=== PATIENT | female | born 1970 | race Caucasian/White ===

== ENCOUNTER 2021-12-01 14:15 | Outpatient (CLI) | payer OTHER, SELFPAY ==
--- NOTE | 2021-12-01 14:27 | MR_ITS ---
WS: [id number] MRI RIGHT KNEE HISTORY: SPRAIN OF RT KNEE , KNEE Instability, right COMPARISON: None available. Anterior cruciate ligament: Complete tear of the ACL. The remaining ACL is abnormal with edema. Posterior cruciate ligament: Intact. Medial collateral ligament: Fluid on both sides of the MCL. No full-thickness tear is identified. Posterior lateral corner structures: Intact. Medial menisci: Increased T2 signal towards the meniscal root. Cannot confirm tear. Lateral meniscus: No definite tear identified. There is a small amount of increased signal in the pos terior third of the posterior horn. Extensor mechanism: Distal quadriceps tendon and patellar tendons are intact. Fluid and soft tissue: Large suprapatellar joint effusion. There is extensive soft tissue edema surro unding the knee. No Samuels's cyst. Osseous and articular structures: Patellofemoral compartment: Normal. Medial compartment: Very minimal narrowing of the medial compartment. There is a very small amount of marrow edema in the posterior nonweightbearing surface of the femoral condyle. There is also mild ca rtilaginous injury with interruption involving the posterior medial femoral condyle. There is extensi ve marrow edema involving the tibial plateau, greatest posteriorly. The attachment of the meniscus al karri the posterior tibial plateau may be interrupted. There is a large amount of increased fluid at th is location. Lateral compartment: Minimal narrowing of the lateral compartment. Marrow edema extending across the tibial plateau. Greatest amount of edema involves the posterior tibial plateau. MR/MR knee RT wo con* [id number] IMPRESSION: 1. Complete tear ACL. 2. Large amount of marrow edema along the entire tibial plateau, greatest post erior. There is a small amount of edema with involvement of the cartilage invol ving the posterior medial femoral condyle. 3. Meniscal attachment to the posterior medial tibial plateau may be interrupt ed as there is a large amount of marrow edema and adjacent fluid at this locati on. 4. Intrasubstance degeneration of the posterior horns of the medial and latera l meniscus. 5. Number large joint effusion and extensive soft tissue edema surrounding the knee.
== END 2021-12-01 14:16 | disposition home or self-care (01) ==
LOC: RAD 14:20
PROVIDERS: PCP Nurse Practitioner Family; Visit Provider Nurse Practitioner Family
DX: S83.511A Sprain of anterior cruciate ligament of right knee, initial encounter (principal); X58.XXXA Exposure to other specified factors, initial encounter; R60.0 Localized edema; M25.461 Effusion, right knee
CPT/HCPCS: 73721

== ENCOUNTER 2023-05-16 15:04 | Observation (INO) | payer BC, SELFPAY ==
[2023-05-16] VITALS (53 sets, daily range): BP systolic 97–175; BP diastolic 60–128; PULSE 75–92; RESP 7–32; TEMP 36.6; O2SAT 93–98; BMI 52.0
--- NOTE | 2023-05-16 15:00 | PC.NURSE ---
1500 pm pt arrived from [facility] on a heparin drip 9.8 ml/hr Heparin drip stopped per dr campo order. notified dye lab technician team.
--- NOTE | 2023-05-16 15:04 | ECG_ITS ---
[facility] Test Date: 2023-05-16 Pat Name: Salome Hernandez Department: Room: 104 Gender: Female Research Physician: : 1970 Requested By: Nathaniel Koroma Order Number: [id number] Donya MD: Tereza Tanner M.D. Measurements Intervals [place] Rate: 67 P: 21 MS: 185 QRS: 32 QRSD: 88 T: 116 QT: 387 QTc: 411 Interpretive Statements SINUS RHYTHM NONSPECIFIC ST & T-WAVE ABNORMALITY No previous ECG available for comparison Electronically Signed On 05-16-2023 21:34:53 CDT by Tereza Tanner M.D. [id number]
--- NOTE | 2023-05-16 15:19 | USCV_ITS ---
Salome Hernandez Age: 53 Gender: F : 1970 Exam Date: 05/16/2023 18:08 Ordering Phys: Nathaniel Koroma MD Technologist: LESTER [place] [facility] [place]: NSTEM, tobaccoism, obesity, No history of cardiac intervention per patient. Cardiac cath done today. BP: 175 / 111 HR: 76 Rhythm: Sinus Technical Quality: Adequate with [employer]ISON MEASUREMENTS (Male / Female) Normal Values 2D ECHO LV Diastolic Diameter PLAX 3.3 cm 4.2 - 5.9 / 3.9 - 5.3 cm LV Systolic Diameter PLAX 2.4 cm IVS Diastolic Thickness 1.2 cm 0.6 - 1.0 / 0.6 - 0.9 cm IVS Systolic Thickness 1.9 cm LVPW Diastolic Thickness 1.6 cm 0.6 - 1.0 / 0.6 - 0.9 cm LVPW Systolic Thickness 1.8 cm LVOT Diameter 2.0 cm LV Ejection Fraction 2D Teich 56.0 % LV Ejection Fraction MOD 2C 55.5 % LV Ejection Fraction 2C AL 57.4 % LA Diameter 3.8 cm LA Width 3.8 cm LA Height 5.1 cm RA Width 2.6 cm RA Height 3.4 cm Aorta at Sinotubular Diameter 3.3 cm IVC Diameter 0.9 cm M-MODE Aortic Annulus Diameter 2.5 cm LA Ao Ratio MM 1.5 MV E Point Septal Separation 0.3 cm DOPPLER AV Peak Velocity 120.0 cm/s LVOT Peak Velocity 95.0 cm/s AV Area Cont Eq vti 2.7 cm squared AV Area Cont Eq pk 2.4 cm squared MV Peak Velocity 90.0 cm/s MV Area PHT 3.1 cm squared Mitral E to A Ratio 1.0 MV E' Velocity 45.0 cm/s Mitral E to MV E' Ratio 7.7 Mitral E to LV E' Lateral Ratio 6.6 Mitral E to LV E' Septal Ratio 9.3 TV Peak E Velocity 59.0 cm/s PV Peak Velocity 84.0 cm/s RV Acceleration Time 0.1 s RV Ejection Time 0.4 s RV AcT/ET 0.3 FINDINGS Left Ventricle Left ventricle is normal in size. LV systolic function is normal with EF of 55-60%. Moderate hypokinesis of inferolateral and iferior garcia. Right Ventricle The right ventricle is normal in size and function. Right Atrium Not well visualized Left Atrium The left atrium is normal in size. Mitral Valve Structurally normal mitral valve. Mild mitral regurgitation. Aortic Valve Grossly normal. No significant stenosis or regurgitation. Tricuspid Valve Trace tricuspid regurgitation. Insufficient TR jet to calculate RVSP Pulmonic Valve Not well visualized Pericardium Normal pericardium without effusion. Aorta Normal ascending aorta dimension. IVC The inferior vena cava appears normal. CONCLUSIONS Technically limited quality echocardiogram. LV systolic function is normal with EF of 55-60%. Above mentioned regional wall motion abnormalities. Mild mitral regurgitation Trace tricuspid regurgitation No comparison studies are available. Margarito Waters MD (Electronically Signed) Final Date: 17 May 2023 08:50 S
--- NOTE | 2023-05-16 15:40 | PM.HP ---
Providers/Chief Complaint Admitting Physician: Nathaniel Koroma MD Chief Complaint: nstemi History of Present Illness Salome Hernandez is a 53 year old female with a past medical history of obesity, current smoker, she has been told that she is insulin resistant, is not on any medications, at home, she is hypertensive here but does not take any blood pressure medications, who presents to [facility] due to a few day history of chest pain. Patient tells me that she has chest pain, left-sided, pain that radiates up to her left jaw, down the left arm, associate with diaphoresis, shortness of breath, and aching-like pain. She tells me that usually the chest pain initially starts as a fluttering in her chest, and then progresses to severe left-sided chest pain, no fevers, no chills, no cough, no abdominal pain, no headache or blurry vision, no dysuria, no recent surgeries, no calf pain no calf swelling, no hemoptysis, she does have shortness of breath with the chest pain. She tells me that she had a couple significant episodes throughout the weekend, and this morning, she had chest pain, then at work she had another episode of chest pain, which prompted her to come to the emergency room when she was at work Review of Systems Const: Denies: fever(s) Card: Reports: chest pain and palpitations Resp: Denies: dyspnea GI: Denies: abdominal pain : Denies: flank pain Musc: Denies: neck pain or back pain Skin/Breast: Denies: rash Neuro: Denies: headache(s), numbness in extremities or weakness in extremities Psych: Denies: anxiety Endo: Denies: polyuria or polydipsia Medications/Allergies Allergies Allergy/AdvReac Type Severity Reaction Status Date / Time morphine AdvReac Severe ADR-Dizzine Verified 05/16/23 15:40 ss PFSH Acute PFSH: Medical History (Updated 05/16/23 @ 15:48 by Nathaniel Koroma MD) Current smoker History of obesity Surgical History (Updated 05/16/23 @ 15:45 by Nathaniel Koroma MD) S/P urethral diverticulectomy Family History (Updated 05/16/23 @ 15:46 by Nathaniel Koroma MD) Mother COPD (chronic obstructive pulmonary disease) CHF (congestive heart failure) Social History (Updated 05/16/23 @ 15:45 by Nathaniel Koroma MD) Smoking and tobacco status: current every day smoker Alcohol intake: never Substance/Drug Use: never Physical Exam Const: COMMON NORMALS: no acute distress and patient oriented x3 HENMT: COMMON NORMALS: normocephalic HEAD & SCALP: normocephalic Neck/C-Spine: COMMON NORMALS: no JVD Resp: COMMON NORMALS: normal respiratory effort, No retractions, No use of accessory muscles and clear to auscultation bilaterally AUSCULTATION: clear to auscultation bilaterally Cardio: COMMON NORMALS: no JVD, regular rate, regular rhythm, S1 normal heart sound present and S2 normal heart sound present RATE: regular rate RHYTHM: regular rhythm HEART SOUNDS: S1 normal heart sound present and S2 normal heart sound present GI: COMMON NORMALS: Normal to inspection, nondistended, normoactive bowel sounds present, Soft to palpation and non-tender Extremity: COMMON NORMALS: no pedal edema Neuro: COMMON NORMALS: patient oriented x3, CN's II-XII intact bilaterally and moves all extremities Psych: COMMON NORMALS: mental status grossly normal A&P Assessment and plan (1) Non-STEMI (non-ST elevated myocardial infarction): (2) Chest pain: Plan Unstable angina/NSTEMI -Transfer to [facility], where she received Plavix load 600 mg, aspirin 324, heparin bolus of 4000, on heparin drip, currently chest pain minimal, troponin over 600, EKG reported no acute ST-T wave changes -Consult to Dr. Duenas, currently n.p.o. for coronary angiography this afternoon -Cardiac echo -Serial EKGs, serial troponins, telemetry monitoring -Aspirin, statin, Coreg -Heparin drip currently on hold -Full code -Heparin for DVT prophylaxis She does have leukocytosis, 13,000, no fever, no cough, will obtain Pro-Porter, CRP, respiratory viral panel, UA Attestations Medical Necessity Statement*: Patient requires hospitalization, outpatient observation, for NSTEMI, chest pain Diagnoses Non-STEMI (non-ST elevated myocardial infarction) I21.4 Chest pain R07.9
--- NOTE | 2023-05-16 15:52 | XACV_ITS ---
Exam Room: [facility] Ht: 170 cm Wt: 151 kg BSA: 2.76 m2 Gender: Female : 1970 Exam Priority: Routine Procedure(s): Procedure Description: Diagnostic procedure Procedure Description: PCI procedure Procedure Description: Coronary IVUS Procedure Description: Drug Eluting Coronary Stent Procedure Description: PTCA Procedure Description: Miscellaneous Procedure Description: ACT Procedure Description: Coronary Angiography Procedure Description: Pressure Wire Diagnostic Cath Status: Urgent Diagnostic Findings * INDICATION: 53 year old female with past medical history of tobacco abuse, insulin resistant not on any medications presented to outside hospital with 2 to 3 days of on and off chest discomfort and was transferred to our facility for further management. Currently patient she started noticing chest discomfort on the left side of the chest on Tuesday. It was radiating to the left arm and jaw. These episodes were associated with diaphoresis. Today got concerned as continued having on and off chest pain. Troponin obtained at outside hospital was over 600. EKG shows normal sinus rhythm with nonspecific ST-T wave changes with borderline ST elevation in lead III. * Circumflex has mild diffuse disease. * Left Main: minimal 30% stenosis, CAMMY: 3 flow. * Proximal Left Anterior Descending: obstructive 70% stenosis, CAMMY: 3 flow. * Distal Right Coronary Artery: total occlusion, CAMMY: 0 flow. * Coronary angiography shows right dominance. PCI Status: Urgent PCI Indication: NSTE - ACS Interventional Findings * PROCEDURE DETAIL: We engaged RCA with JR4 guide catheter. IV heparin was administered to maintain anticoagulation. 0.014 through guidewire was used to cross the totally occluded segment. Balloon angioplasty was performed with 2.0 x 12 mm semicompliant balloon. This restored flow however it was a very small sized diffusely diseased vessel. This vessel also had collateral blood flow from the left side. Given size of the vessel and subacute occlusion with collaterals from left size, decision was made to treat treated medically. We then turned attention to proximal LAD stenosis which appeared moderate to severe. Left main artery was engaged with XB 3.5 guide catheter. After normalization, IFR wire was advanced into distal LAD. iFR value of 0.83 was obtained that was significantly ischemic. We then performed IVUS of left main which showed minimal luminal area of 12 mm2 which was not significant. We then proceeded with PCI of proximal LAD. We predilated the stenosis with 3.0 x 15 mm semicompliant balloon. This was followed by placement of a 3.5 x 26 mm resolute Callands drug-eluting stent.We then performed IVUS that showed underexpanded segment of the stent. The stent was postdilated with 3.75 x 15 mm NC balloon. At this time final angiogram was performed that showed excellent stent expansion, no residual stenosis and CAMMY-3 flow. Guidewire and guide catheter were removed.. * Proximal Left Anterior Descendin% stenosis treated with a AB TREK 3.00X15 RX BALLOON, TONY R RUFINO 3.5X26 JAMES, and MDT NC EUPHORA RX [id number] BALLOON. 0% residual stenosis, CAMMY: 3 flow. * Distal Right Coronary Artery: 100% stenosis treated with a AB MINI TREK 2.00X12 RX BALLOON. 0% residual stenosis, CAMMY: 2 flow. Conclusions 1. Total occlusion of 2. distal RCA. Flow was restored with balloon angioplasty however diffusely diseased, small sized vessel with collaterals from left side. Stent not placed.. 3. Severe proximal LAD stenosis confirmed with IFR value of 0.83. Status post successful revascularization with 1 stent. 4. Proximal Left Anterior Descending was treated with a Balloon, Drug Eluting Stent, and Balloon. 5. Distal Right Coronary Artery was treated with a Balloon. Recommendations * Dual antiplatelet therapy with aspirin and Plavix for at least 1 year. * High intensity statin therapy. * Outpatient cardiology follow-up in 2 to 4 weeks. Interventional RX Recommendation: PCI w/o planned CABG Diagnostic RX Recommendation: PCI w/o planned CABG Anticoagulation: Heparin Pressures Phase:Rest AO : 117 / 93 ( 106 ) @ 5:29:00 PM 113 / 87 ( 101 ) @ 5:31:00 PM 121 / 96 ( 109 ) @ 5:32:00 PM 132 / 97 ( 114 ) @ 5:36:00 PM 151 / 116 ( 134 ) @ 5:43:00 PM 150 / 107 ( 127 ) @ 5:51:00 PM 161 / 95 ( 124 ) @ 5:56:00 PM 137 / 93 ( 113 ) @ 6:00:00 PM 152 / 103 ( 125 ) @ 6:07:00 PM 101 / 72 ( 86 ) @ 6:11:00 PM 194 / 99 ( 134 ) @ 6:19:00 PM 167 / 99 ( 130 ) @ 6:19:00 PM Clinical Evaluation EBL: 5mL-10mL Procedural Details Procedure Consent Obtained. Pre-Procedure Time Out. Identified patient by full name and date of as verbalized by the patient/guarantor. Does the consent match the physician's order: Yes. Accurate & Complete Informed Consent: Yes. Inpatient/Outpatient History & Physical on Chart: Yes. If H&P is completed, is and addenduem needed: No; If yes, is the addendum complete: N/A. Visualize and Verify Site with Patient/Guarantor: N/A. Relevant Radiology Images available: Yes. Pre-op teaching completed and patient verbalized understanding. The risks, benefits, and alternatives of sedation and/or procedure were discussed by physician. The patient agrees to continue. Procedure started. Physician arrived. [facility] Clinical Fraility Score: 3: Managing Well. Logistics Program Manager Indications: ACS > 24 hours. Chest Pain Symptom Assessment: Typical Angina Symptoms. Correct patient, site and procedure confirmed by cath team. Current diagnosis: NSTEMI. PERRLA. 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 Lungs clear x 5 lobes. IV Site on Arrival: 20 gauge in the right anticubital. IV Fluids: 0.9% NaCl at KVO. 0 mL infused prior to slab conditioner supervisor. Pre Procedural Pulses: bilateral dorsalis pedis was 2+. Pre Procedural Pulses: bilateral posterior tibial was 1+. Pre Procedural Pulses: bilateral radial was 2+. Oxygen started at 2liters/min via nasal canula. right groin was prepped with chloroprep then draped in the usual sterile fashion. right radial was prepped with chloroprep then draped in the usual sterile fashion. Baseline sample Acquired. HR: 67 BPM. Physician scrubbed in. Immediate Pre-Procedure Time Out. Correct Patient: Yes; Correct Procedure: Yes; Correct Site: Yes; Correct Patient Position: Yes; Correct Supplies: Yes; Dried Flammable Prep: Yes; Blood Products Available: N/A;. Lidocaine 1% infiltrated to the right radial. Arterial access obtained. Wire and needle removed. Manual pressure applied to the access site. Arterial access obtained. A 5 colombian TIG catheter in over wire. Multiple views taken of left coronary artery. Catheter redirected to the RCA. Multiple views taken of right coronary artery. Catheter removed over the exchange wire. PCI Indication: NSTEMI. ACT drawn. Results 161 seconds. Therapeutic limits - pre-heparin administration 90-150 seconds and monitoring heparin during a vascular procedure >250 seconds. 6 colombian JR 4 guide catheter was inserted over the wire. Runthrough guidewire was advanced through the guide catheter to lesion in the distal RCA. Inflation number : 1 A AB MINI TREK 2.00X12 RX BALLOON was prepped and advanced across the Dist RCA , then inflated to 10 GARY for 0:14 seconds. Inflation number: 2 The AB MINI TREK 2.00X12 RX BALLOON was reinflated across the Dist RCA, to 10 GARY for 0:11 seconds. Inflation number: 3 The AB MINI TREK 2.00X12 RX BALLOON was reinflated across the Dist RCA, to 4 GARY for 0:10 seconds. Balloon out. Results checked. Wire out. Physician review of cine films. Guide catheter out. 6 colombian XB 3.5 guide catheter was inserted over the wire. ACT drawn. Results 213 seconds. Therapeutic limits - pre-heparin administration 90-150 seconds and monitoring heparin during a vascular procedure >250 seconds. IFR guidewire was advanced through the guide catheter to lesion in the prox LAD. Results: 0.83. IVUS catheter inserted OTW and advanced to the LAD. IVUS measurements obtained. IVUS catheter out OTW. Inflation number : 1 A AB TREK 3.00X15 RX BALLOON was prepped and advanced across the Prox LAD , then inflated to 8 GARY for 0:17 seconds. Inflation number: 2 The AB TREK 3.00X15 RX BALLOON was reinflated across the Prox LAD, to 8 GARY for 0:12 seconds. Balloon out. Results checked. 3.5x26mm Resolute Callands stent inserted to lesion in the prox LAD. Intact stent out OTW. Runthrough guidewire was advanced through the guide catheter to lesion in the prox LAD. IFR wire out. Inflation Number : 3 A MDT R RUFINO 3.5X26 JAMES -Lot Number# _[id number] EXP: 10/15/2024 was prepped and advanced across the Prox LAD. The stent was deployed at 12 GARY for 0:16 seconds. Stent balloon out over wire. Results checked. IVUS catheter inserted OTW and advanced to the LAD. IVUS measurements obtained. IVUS catheter out OTW. Inflation number : 4 A MDT NC EUPHORA RX 3.84X46UM BALLOON was prepped and advanced across the Prox LAD , then inflated to 10 GARY for 0:19 seconds. Inflation number: 5 The MDT NC EUPHORA RX 3.02G40SZ BALLOON was reinflated across the Prox LAD, to 12 GARY for 0:15 seconds. Balloon out. Results checked. Wire out. Results checked. ACT drawn. Results 215 seconds. Therapeutic limits - pre-heparin administration 90-150 seconds and monitoring heparin during a vascular procedure >250 seconds. Guide catheter out. Physician scrubbed out. A TR Band was successful obtaining hemostatsis at the Right Radial artery insertion site. Post Procedure: Pulses reassessed and unchanged. PERRLA. 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 No VTE prophylaxis required. Medication's Wasted: Heparin = 1000 units. Medication's Wasted: Lidocaine 1% = 1 mL. Medication's Wasted: Nitro = 49.3 mg. Total IV fluids: 81 mL. Vital chart was stopped. Complications: None. Estimated blood loss: 5mL-10mL. Responsiveness - Normal response to verbal stimuli; alert and oriented, PERRLA. Airway - Unaffected, no intervention required; spontaneous ventilation. Circulation: W/N/L, pulses unchanged. Nausea/Vomiting: No. Procedure completed. Patient transferred by bed to 1st floor. Access Site Site: Right Radial artery Sheath Size: 6 Fr Hemostasis Method: TR Band Hemostasis Success: Successful Procedure Medications Start: 4:19 PM Stop: 4:19 PM Medication: Versed Amount: 1 mg Route: I.V. Start: 4:19 PM Stop: 4:19 PM Medication: Fentanyl Amount: 50 mcg Route: I.V. Start: 4:26 PM Stop: 4:26 PM Medication: Nitrogylcerin Amount: 300 mcg Route: I.A. Start: 4:29 PM Stop: 4:29 PM Medication: Heparin Amount: 2500 units Route: I.V. Start: 4:34 PM Stop: 4:34 PM Medication: Heparin Amount: 5000 units Route: I.V. Start: 4:45 PM Stop: 4:45 PM Medication: Nitrogylcerin Amount: 200 mcg Route: I.A. Start: 4:48 PM Stop: 4:48 PM Medication: Fentanyl Amount: 50 mcg Route: I.V. Start: 4:49 PM Stop: 4:49 PM Medication: Versed Amount: 1 mg Route: I.V. Start: 4:51 PM Stop: 4:51 PM Medication: Heparin Amount: 3000 units Route: I.V. Start: 5:05 PM Stop: 5:05 PM Medication: Heparin Amount: 1000 units Route: I.V. Start: 5:17 PM Stop: 5:17 PM Medication: Nitrogylcerin Amount: 10 mcg/min Route: I.V. drip Start: 5:18 PM Stop: 5:18 PM Medication: Nitrogylcerin Amount: 200 mcg Route: I.C. Start: 5:18 PM Stop: 5:18 PM Medication: Hydralazine Amount: 10 mg Route: I.V. Start: 5:24 PM Stop: 5:24 PM Medication: Heparin Amount: 4000 units Route: I.V. I, the attending physician, have reviewed and verified all procedure medications. Yes, all medications given per verbal order History/Risk Factors Hypertension: Yes Dyslipidemia: No Peripheral Arterial Disease (PAD): No Myocardial Infarction ([place]): No Obesity: Yes Renal Disease: No Tobacco Use: Current/Recent(w/in 1 year) Prior Interventions PCI: No CABG: No Valve Surgery: No Report Signatures Finalized by Margarito Waters MD on 05/21/2023 11:02 PM
[2023-05-16] MEDS: ondansetron 2 mg/ML SDV 2 mL 4 MG IVP (16:01)
[2023-05-16] MEDS: pantoprazole 40 mg SDV IVP (16:01)
--- NOTE | 2023-05-16 16:16 | PM.CONSULT ---
Providers/Reason For Consult Consulting Physician/Specialty*: Margarito Waters MD/ Cardiology Reason for Consult*: NSTEMI Requesting Physician: Dr Koroma Attending Physician: Nathaniel Koroma MD History of Present Illness History of Present Illness Salome Hernandez is a 53 year old female with past medical history of tobacco abuse, insulin resistant not on any medications presented to outside hospital with 2 to 3 days of on and off chest discomfort and was transferred to our facility for further management. Currently patient she started noticing chest discomfort on the left side of the chest on Tuesday. It was radiating to the left arm and jaw. These episodes were associated with diaphoresis. Today got concerned as continued having on and off chest pain. Troponin obtained at outside hospital was over 600. EKG shows normal sinus rhythm with nonspecific ST-T wave changes with borderline ST elevation in lead III. She is still having on and off chest discomfort however it is very mild now. Review of Systems Const: Denies: fever(s) Card: Reports: chest pain and palpitations Resp: Denies: dyspnea GI: Denies: abdominal pain : Denies: flank pain Musc: Denies: neck pain or back pain Skin/Breast: Denies: rash Neuro: Denies: headache(s), numbness in extremities or weakness in extremities Psych: Denies: anxiety Endo: Denies: polyuria or polydipsia Medications/Allergies Allergies Allergy/AdvReac Type Severity Reaction Status Date / Time morphine AdvReac Severe ADR-Dizzine Verified 05/16/23 15:40 ss Current Medications Generic Name Dose Route Start Last Admin Trade Name Freq PRN Reason Stop Dose Admin Ondansetron HCl 4 mg 05/16/23 15:15 05/16/23 16:01 Ondansetron 2 Mg/Ml Sdv 2 Ml IVP 4 mg Q8H PRN Administration vomiting, or N/V if npo Pantoprazole Sodium 40 mg 05/16/23 15:15 05/16/23 16:01 Pantoprazole 40 Mg Sdv IVP 40 mg Q24H ALL Administration PFSH Acute PFSH: Medical History Current smoker History of obesity Surgical History S/P urethral diverticulectomy Family History Mother COPD (chronic obstructive pulmonary disease) CHF (congestive heart failure) Social History Smoking and tobacco status: current every day smoker Alcohol intake: never Substance/Drug Use: never Vitals/I&O/Wt Last Vital Signs Pulse 80 05/16/23 15:50 Resp 25 H 05/16/23 15:50 BP 175/111 05/16/23 15:50 Pulse Ox 97 05/16/23 15:50 O2 Del Method Room Air 05/16/23 15:50 Weight last 48 hrs Weight 332 lb Physical Exam Narrative: GENERAL: Patient is alert, awake and oriented x3. [] NECK: No jugular vein distension. [] HEENT: No cyanosis. No icterus. No pallor. [] HEART: Regular S1 and S2. No murmur, rub or gallop. [] LUNGS: Clear to auscultate bilaterally. [] CENTRAL NERVOUS SYSTEM: Grossly nonfocal. [] EXTREMITIES: Lower extremities with 1+ edema bilaterally. Data 05/16/23 15:45 A&P Assessment and plan (1) Non-STEMI (non-ST elevated myocardial infarction): (2) Chest pain: Plan Patient has non-ST elevation ME. No ongoing chest discomfort. Patient troponin is significantly elevated. We will continue to trend it. Given ST changes and significant elevation of troponin, will proceed with coronary angiogram with possible PCI recently. Continue aspirin and Plavix. We will obtain echocardiogram. Thank you for involving us with care of this patient. We will continue to follow. Please call with questions. Consult Attestations Medical Necessity Statement: Care expected to cross 2 midnights. Coding Level of Care Code Acute Code for [facility] Fwd Diagnoses Non-STEMI (non-ST elevated myocardial infarction) I21.4 Chest pain R07.9
--- NOTE | 2023-05-16 16:18 | W.PM.OPSUD ---
Surgery/Procedure H&P Update DATE OF PROCEDURE: May 16, 2023 DATE H&P PERFORMED: 05/16/23 H&P UPDATE INFORMATION: I have reviewed H&P completed within last 30 days, I have examined patient prior to procedure and No changes to prior documentation PREOP DIAGNOSIS: NSTEMI PRIMARY INDICATION FOR PROCEDURE: NSTEMI PLANNED PROCEDURE: Left heart cath with possible percuteneous coronary intervention PATIENT REASSESSED PRIOR TO SEDATION, WITH NO CHANGE NOTED: Yes PHYSICAL EXAM: alert, oriented x 3, clear to auscultation bilaterally and regular rate & rhythm AIRWAY EVAL/ANESTHESIA PLAN: normal airway, ASA III, Local Anesthesia, Risks, benefits & alternatives of sedation and/or procedure discussed and Patient agrees to continue as planned ADDITIONAL INFORMATION: Moderate sedation
--- NOTE | 2023-05-16 16:19 | PC.NURSE ---
pt off unit to laboratory monitor
[2023-05-16 16:20] LABS: Platelet Count 330 10^3/cmm (157-399)
[2023-05-16 16:44] LABS: Troponin(5th) Baseline 734 ng/L (0-10)
[2023-05-16 16:47] LABS: Chol HDL Ratio 4.89 mg/dL (0.0-4.40); Cholesterol 220 mg/dL (0-200); HDL Cholesterol 45 mg/dL (60-100); LDL Cholesterol Calculated 128 mg/dL (50-129); LDL HDL Ratio 2.84 RATIO (0.00-3.22); Triglycerides 233 mg/dL (0-150)
[2023-05-16 16:48] LABS: NT Pro B Type Natriuretic Pept 724 pg/mL (0-125); Procalcitonin 0.07 ng/mL (0-0.5); Thyroid Stimulating Hormone 38.93 uIU/mL (0.27-4.20)
[2023-05-16 16:49] LABS: Estmated Average Glucose 126
[2023-05-16 16:59] LABS: C Reactive Protein 19.3 mg/L (0.0-4.9)
--- NOTE | 2023-05-16 17:15 | ECG_ITS ---
[facility] Test Date: 2023-05-16 Pat Name: Salome Hernandez Department: Room: 104 Gender: Female Urology Physician: : 1970 Requested By: Nathaniel Koroma Order Number: [id number] Donya MD: Tereza Tanner M.D. Measurements Intervals [place] Rate: 79 P: 53 [place]: 192 QRS: 42 QRSD: 90 T: 113 QT: 394 QTc: 454 Interpretive Statements SINUS RHYTHM NONSPECIFIC ST & T-WAVE ABNORMALITY Compared to ECG 05/16/2023 15:11:15 No significant changes Electronically Signed On 05-16-2023 21:34:25 CDT by Tereza Tanner M.D. [id number]
[2023-05-16] MEDS: sodium chloride 0.9% 1,000 ML 100 ML IV (18:41)
[2023-05-16] MEDS: nitroglycerin drip 50 MG/250 ML PREMIX IV (18:41)
--- NOTE | 2023-05-16 19:57 | PC.NURSE ---
Shift Note Frequent safety and comfort rounds continue. Orders and/or nursing care completed as indicated. Patient monitored for response to intervention and treatment(s). Education provided includes post cardiac catheterization activity restrictions to right arm, nitro drip and to call nurse SHERRI for any chest pain or discomfort. Patient and/or parts representative verbalizes understanding. Will continue to monitor.
--- NOTE | 2023-05-16 19:59 | PC.NURSE ---
1520 pm Direct Admit Note Patient admitted to 104 from [facility] via stretcher. Covering service notified Dr Jt Eli. Patient presents with chest pain. Orders reviewed & will continue to monitor. Patient and/or credit resolution representative oriented to environment, equipment, and informed of the following as found in the admission booklet: patient rights & responsibilities, visitor policy, hand and respiratory hygiene practice. Other education includes: NPO, cardiac catheterization. Patient and/or credit resolution representative verbalizes understanding. Notified sand molder in regards to heparin drip, Dr Waters verbal order to hold Heparin drip now and prep patient for heart cath at 4 pm. Heparin drip put on hold as ordered.
[2023-05-16] MEDS: carvedilol 3.125 mg Tablet PO (21:04)
[2023-05-16] MEDS: atorvastatin 40 mg Tablet PO (21:04)
--- NOTE | 2023-05-16 21:17 | ECG_ITS ---
[facility] Test Date: 2023-05-16 Pat Name: Salome Hernandez Department: Room: 104 Gender: Female Machine Sander: : 1970 Requested By: Nathaniel Koroma Order Number: [id number] Naqvi MD: Tereza Tanner M.D. Measurements Intervals [place] Rate: 84 P: 54 [place]: 179 QRS: 29 QRSD: 89 T: 104 QT: 374 QTc: 444 Interpretive Statements SINUS RHYTHM LOW QRS VOLTAGE IN PRECORDIAL LEADS [QRS DEFLECTION < 1.0 mV IN CHEST LEADS] NONSPECIFIC T-WAVE ABNORMALITY Compared to ECG 05/16/2023 17:40:07 Low QRS voltage now present T-wave abnormality still present Electronically Signed On 05-16-2023 21:31:29 CDT by Tereza Tanner M.D. [id number]
[2023-05-16 22:44] LABS: Troponin 5 6HR 817.2 ng/L (0-10); Troponin 5 6HR Delta 83.2 ng/L (0-12)
[2023-05-17] VITALS (60 sets, daily range): BP systolic 106–139; BP diastolic 67–88; PULSE 64–91; RESP 11–26; TEMP 36.7–37.1; O2SAT 90–97
[2023-05-17 02:50] LABS: Basophils # 0.1 10^3/uL (0.0-0.1); Basophils % 0.6 %; Eosinophils # 0.1 10^3/uL (0.0-0.8); Eosinophils % 0.7 %; Hematocrit 41.5 % (36-47); Lymphocytes % 20.6 %; Mean Corpuscular HGB Conc 31.6 g/dL (30-55); Mean Corpuscular Hemoglobin 28.2 pg (27-33); Mean Corpuscular Volume 89.4 fl (85-98); Mean Platelet Volume 9.7 fL (7.4-10.4); Monocytes # 0.7 10^3/uL (0.2-0.9); Monocytes % 7.5 %; Neutrophils # 6.96 10^3/uL (1.8-7.7); Neutrophils % 70.3 %; Nucleated Red Blood Cells % 0 %; Platelet Count 290 10^3/cmm (157-399); Red Blood Count 4.64 10^6/uL (3.85-5.65); Red Cell Distribution Width 15.8 % (12.1-15.1)
[2023-05-17 03:03] LABS: Partial Thromboplastin Time 25.1 SECONDS (23.9-36.7)
[2023-05-17 03:11] LABS: Alanine Aminotransferase 28 U/L (0-33); Alkaline Phosphatase 68 U/L (35-105); Anion Gap 11.3 (5-19); Aspartate Amino Transferase 36 U/L (0-32); Blood Urea Nitrogen 11 mg/dL (6-20); Carbon Dioxide 29 mmol/L (22-29); Chloride 102 mmol/L (98-107); Globulin 3.4 g/dL (1.3-4.6); Glomerular Filtration Rate 58.2 mL/min (90-130); Glucose 112 mg/dL (65-115); Magnesium 1.9 mg/dL (1.7-2.3); Osmolality Calculated 286 mOsm/kg (285-295); Phosphorus 3.7 mg/dL (2.5-4.5); Potassium 4.3 mmol/L (3.5-5.1); Sodium 138 mmol/L (136-145); Total Bilirubin 0.5 mg/dL (0.15-1.2); Total Protein 7.4 g/dL (6.6-8.7)
[2023-05-17] MEDS: heparin drip 25,000 UNIT/500 ML PREMIX 42.17 UNIT IV (04:00)
[2023-05-17] MEDS: sodium chloride 0.9% 1,000 ML 100 ML IV ×2 (04:02→14:17)
[2023-05-17] MEDS: perflutren protein-a microsphr 0.22 mg/mL SDV 3 mL IV (05:55)
--- NOTE | 2023-05-17 08:38 | P.PN_ITS ---
Subjective Subjective: Patient is doing well. She underwent coronary angiogram yesterday that showed totally occluded distal RCA. It was subacutely occluded as troponins were elevated but no significant uptrend. Balloon angioplasty was performed however it was a small sized vessel with diffuse disease. Patient had severe proximal LAD stenosis (confirmed with iFR) and underwent successful revascularization with 1 Stent. Denies chest pain Vitals/I&O/Wt Last Vital Signs Temp 98.2 F 05/17/23 07:59 Pulse 91 05/17/23 07:59 Resp 15 05/17/23 07:59 BP 134/85 05/17/23 07:59 Pulse Ox 95 05/17/23 07:59 O2 Del Method Room Air 05/17/23 07:59 05/16/23 05/17/23 05/17/23 22:59 06:59 14:59 Intake Total 1016.4 / 1016.4 Balance 1016.4 / 1016.4 Weight last 48 hrs Weight 332 lb Physical Exam Narrative: GENERAL: Patient is alert, awake and oriented x3. [] NECK: No jugular vein distension. [] HEENT: No cyanosis. No icterus. No pallor. [] HEART: Regular S1 and S2. No murmur, rub or gallop. [] LUNGS: Clear to auscultate bilaterally. [] CENTRAL NERVOUS SYSTEM: Grossly nonfocal. [] EXTREMITIES: Lower extremities with 1+ edema bilaterally. Data 05/17/23 02:37 05/17/23 02:37 A&P Assessment and plan (1) Non-STEMI (non-ST elevated myocardial infarction): (2) Chest pain: Plan Above-mentioned coronary anatomy. S/p successful revascularization of proximal LAD with 1 stent. Balloon angioplasty of RCA performed however it was a late presentation after repeat occluded RCA with infarction process completed. Echo shows normal LV systolic function. Continue dual antiplatelet therapy with aspirin and Plavix. High intensity statin therapy. Beta-sohail. We will continue heparin drip till tomorrow as culprit for [place] was not stented given old presentation. Also will continue IV fluids. Monitor renal function Thank you for involving us with care of this patient. We will continue to follow. Please call with questions. Attestations Medical Necessity Statement*: Care expected to cross 2 midnights. Coding Level of Care Code Acute Code for [facility] Fwd Diagnoses Non-STEMI (non-ST elevated myocardial infarction) I21.4 Chest pain R07.9
[2023-05-17] MEDS: clopidogrel 75 mg Tablet PO (08:40)
[2023-05-17] MEDS: carvedilol 3.125 mg Tablet PO (08:40)
[2023-05-17] MEDS: aspirin 81 mg EC Tablet PO (08:40)
--- NOTE | 2023-05-17 09:30 | PC.CHAP ---
Pastoral Care Encounter/Spiritual Assessment Type of Contact [] Declined defective cigarette slitter visit [] Patient/Family/Request visit [] Outpatient visit [] Follow-up visit [] Physician referral [] Code/Alert [x] Routine visit [] Staff referral [] Actively dying [] Patient sleeping [] Family support [] [] Out of room [] Palliative care [] [] Receiving care in room [] Pre-surgical visit [] Trauma [] Long length of stay [] ICU visit [] Other: Relational/Emotional Strength [x] Patient feels connected with others/family/visitors/staff [] Distress [] Loneliness/isolation [] Abandonment Spirituality of Patient [x] Person of Kacey [] Attends Judaism of their [place] [x] Believes in Prayer [] Reads Bible or Restorationism materials [] There are Spiritual issues to be addressed Auditor Appraiser Interventions [x] Prayer [x] Active listening [] Non-anxious presence [x] Spiritual/emotional support [] Crisis/trauma care [] Spiritual counseling [] Bereavement support [] Provided bereavement packet [] Provided Bible/devotional materials [] Provided toy/stuffed animal, coloring book to patient or family member [] Provided Communion [] Anointing/[place] [] Salvation [x] Completed spiritual assessment [] Other: Impact on Illness or Injury [] Angry [] Fearful [] Anxious [] Often cries [] Exhaustion [] Unable to work [] Unable to attend restoration [] Unable to walk/stand [] Unable to read [] Unable to drive [] Unable to eat/drink [] Unable to sleep [] Unable to be with family [] Patient intubated [] Other: Summary Time spent with patient 5 min
[2023-05-17 09:56] LABS: Free T4 Free Thyroxine 0.48 ng/dL (0.82-1.77); T3 Free 1.8 PG/ML (2.0-4.4)
[2023-05-17 10:28] LABS: Partial Thromboplastin Time 83.9 SECONDS (23.9-36.7)
[2023-05-17 13:48] LABS: Add Urine Microscopic? NO; Charge for UA Resulting for Rev
[2023-05-17 14:06] LABS: Bilirubin Urine Neg (Negative); Blood Urine Neg (Negative); Glucose Urine UA Norm (Normal); Ketones Urine Negative (Negative); Leukocyte Esterase Urine Negative (Negative); Nitrate Urine Negative (Negative); Protein Urine Neg (Negative); Urine Appearance Clear (CLEAR); Urine Color Yellow (Yellow); Urobilinogen Urine Norm (Negative); pH Urine 5 (5-7)
--- NOTE | 2023-05-17 14:47 | P.PN_ITS ---
Subjective Subjective: Patient was seen this morning, she is currently chest pain-free, denies any fevers, no chills, no cough, she denies a history of hypothyroidism, we discussed in detail her angiogram, we discussed smoking cessation, she tells me that she is not going to smoke anymore, will continue heparin drip Vitals/I&O/Wt Last Vital Signs Temp 98.2 F 05/17/23 11:18 Pulse 77 05/17/23 11:59 Resp 18 05/17/23 11:59 BP 109/83 05/17/23 11:59 Pulse Ox 92 05/17/23 11:59 O2 Del Method Room Air 05/17/23 11:59 05/16/23 05/17/23 05/17/23 22:59 06:59 14:59 Intake Total 1016.4 / 1016.4 1796.657 / 1796.657 Balance 1016.4 / 1016.4 1796.657 / 1796.657 Weight last 48 hrs Weight 150.593 kg Physical Exam Const: COMMON NORMALS: no acute distress and patient oriented x3 Resp: COMMON NORMALS: normal respiratory effort, No retractions, No use of accessory muscles and clear to auscultation bilaterally AUSCULTATION: clear to auscultation bilaterally Cardio: COMMON NORMALS: regular rate, regular rhythm, S1 normal heart sound present and S2 normal heart sound present RATE: regular rate RHYTHM: regu lar rhythm HEART SOUNDS: S1 normal heart sound present and S2 normal heart sound present GI: COMMON NORMALS: Normal to inspection, nondistended, normoactive bowel sounds present and non-tender Extremity: COMMON NORMALS: no pedal edema Neuro: COMMON NORMALS: patient oriented x3 Psych: COMMON NORMALS: mental status grossly normal Data 05/17/23 02:37 05/17/23 02:37 A&P Assessment and plan (1) Non-STEMI (non-ST elevated myocardial infarction): (2) Chest pain: Plan Unstable angina/NSTEMI -Transfer to [facility], where she received Plavix load 600 mg, aspirin 324, heparin bolus of 4000, on heparin drip, currently chest pain minimal, troponin over 600, EKG reported no acute ST-T wave changes -Consult to Dr. Duenas, status post LAD stent, balloon angioplasty RCA, late presentation after repeat occluded RCA with infarct completed -Cardiac echo shows normal LV function -Aspirin, Plavix, statin, Coreg -Heparin drip currently -Full code -Heparin for DVT prophylaxis -Hypothyroidism, start levothyroxine 25 mcg once daily Plan for today, continue heparin drip, aspirin, Plavix, statin, monitor for chest pain, Attestations Medical Necessity Statement*: Patient requires hospitalization for NSTEMI, is status post LAD stent, with an occluded RCA, requiring heparin drip Diagnoses Non-STEMI (non-ST elevated myocardial infarction) I21.4 Chest pain R07.9
[2023-05-17] MEDS: pantoprazole 40 mg SDV IVP (15:14)
[2023-05-17] MEDS: heparin drip 25,000 UNIT/500 ML PREMIX 39 UNIT IV (16:18)
[2023-05-17] MEDS: carvedilol 6.25 mg Tablet PO (17:51)
[2023-05-17] MEDS: atorvastatin 40 mg Tablet PO (20:10)
[2023-05-18] VITALS (7 sets, daily range): BP systolic 105–144; BP diastolic 73–93; PULSE 66–84; RESP 14–21; TEMP 36.6–37.2; O2SAT 93–97
[2023-05-18 03:26] LABS: Basophils # 0.1 10^3/uL (0.0-0.1); Basophils % 0.5 %; Eosinophils # 0.1 10^3/uL (0.0-0.8); Eosinophils % 1.3 %; Hematocrit 41.7 % (36-47); Lymphocytes # 2.4 10^3/uL (0.8-4.8); Lymphocytes % 25.2 %; Mean Corpuscular HGB Conc 31.7 g/dL (30-55); Mean Corpuscular Hemoglobin 28.8 pg (27-33); Mean Corpuscular Volume 90.8 fl (85-98); Mean Platelet Volume 9.9 fL (7.4-10.4); Monocytes # 0.7 10^3/uL (0.2-0.9); Monocytes % 7.3 %; Neutrophils # 6.22 10^3/uL (1.8-7.7); Neutrophils % 65.4 %; Nucleated Red Blood Cells % 0 %; Platelet Count 267 10^3/cmm (157-399); Red Blood Count 4.59 10^6/uL (3.85-5.65); White Blood Count 9.51 10^3/uL (3.29-11.43)
[2023-05-18 03:45] LABS: Alanine Aminotransferase 26 U/L (0-33); Albumin Level 3.8 g/dL (3.5-5.2); Alkaline Phosphatase 64 U/L (35-105); Anion Gap 9.6 (5-19); Aspartate Amino Transferase 25 U/L (0-32); Blood Urea Nitrogen 11 mg/dL (6-20); Calcium 8.7 mg/dL (8.5-10.5); Carbon Dioxide 30 mmol/L (22-29); Chloride 103 mmol/L (98-107); Globulin 3.2 g/dL (1.3-4.6); Glomerular Filtration Rate 65.8 mL/min (90-130); Glucose 119 mg/dL (65-115); Magnesium 2.1 mg/dL (1.7-2.3); Osmolality Calculated 287 mOsm/kg (285-295); Phosphorus 3.2 mg/dL (2.5-4.5); Potassium 4.6 mmol/L (3.5-5.1); Sodium 138 mmol/L (136-145); Total Bilirubin 0.3 mg/dL (0.15-1.2)
[2023-05-18 03:51] LABS: Partial Thromboplastin Time 79.1 SECONDS (23.9-36.7)
[2023-05-18] MEDS: levothyroxine 25 mcg Tablet PO (05:12)
--- NOTE | 2023-05-18 07:39 | P.PN_ITS ---
Subjective Subjective: Patient is doing well. Denies chest pain. Vitals/I&O/Wt Last Vital Signs Temp 97.9 F 05/18/23 04:00 Pulse 66 05/18/23 05:35 Resp 15 05/18/23 04:00 BP 105/82 05/18/23 04:00 Pulse Ox 96 05/18/23 04:00 O2 Del Method Room Air 05/17/23 11:59 05/17/23 05/18/23 05/18/23 22:59 06:59 14:59 Intake Total 631.343 / 2428.000 1299.5 / 3727.500 Balance 631.343 / 2428.000 1299.5 / 3727.500 Weight last 48 hrs Weight 332 lb Physical Exam Narrative: GENERAL: Patient is alert, awake and oriented x3. [] NECK: No jugular vein distension. [] HEENT: No cyanosis. No icterus. No pallor. [] HEART: Regular S1 and S2. No murmur, rub or gallop. [] LUNGS: Clear to auscultate bilaterally. [] CENTRAL NERVOUS SYSTEM: Grossly nonfocal. [] EXTREMITIES: Lower extremities with 1+ edema bilaterally. Data 05/18/23 03:17 05/18/23 03:17 A&P Assessment and plan (1) Non-STEMI (non-ST elevated myocardial infarction): (2) Chest pain: Plan Patient is stable stable. Continue dual antiplatelet therapy, beta-sohial and statin. She is stable to be discharged from cardiology standpoint. LV systolic function is normal. Attestations Medical Necessity Statement*: Care expected to cross 2 midnights. Coding Level of Care Code Acute Code for [facility] Fwd Diagnoses Non-STEMI (non-ST elevated myocardial infarction) I21.4 Chest pain R07.9
[2023-05-18] MEDS: aspirin 81 mg EC Tablet PO (08:00)
[2023-05-18] MEDS: clopidogrel 75 mg Tablet PO (08:01)
[2023-05-18] MEDS: carvedilol 6.25 mg Tablet PO (08:01)
--- NOTE | 2023-05-18 09:23 | PC.NURSE ---
Provider notified that heparin drip is done infusing. Provided okayed to discontinue at this time.
--- NOTE | 2023-05-18 10:09 | P.DS_ITS ---
Discharge Providers Date of Admission: 05/16/23 15:04 Date of Discharge: May 18, 2023 Attending Provider at Admission: Nathaniel Koroma MD Attending Provider at Discharge: Nathaniel Koroma MD Diagnoses at Discharge Discharge Diagnosis (1) Non-STEMI (non-ST elevated myocardial infarction): Status: Acute (2) Chest pain: Status: Acute Reason for Visit Reason for Visit: nstemi Hospital Course Hospital Course This is a 53-year-old female, with no significant past medical history, who presents to [facility] for chest pain as a outside transfer from [facility] Patient was admitted to [facility] for chest pain, NSTEMI, elevated troponins, cardiology was consulted, cardiac echo showed EF of 50 to 60%, regional wall motion abnormalities of moderate hypokinesis inferior lateral and inferior garcia, underwent coronary angiography: -Status post successful revascularization of LAD with 1 stent, balloon angioplasty of RCA performed however it was late presentation after repeat occluded RCA with infarction process completed -She was monitored as inpatient on heparin drip after angiography for 24 hours -Received IV fluids, monitoring kidney function -Continue aspirin, statin, Plavix, beta-sohail during her hospitalization -Overall she remained chest pain-free, clinically improved, -Will be discharged home on aspirin, statin, Plavix, Coreg, with a close follow- up with cardiology as outpatient -Discharge instructions as below -On discharge, I had extensive discussion with patient about her smoking, smoking cessation counseling, risk of smoking with CAD worsening CAD, COPD, risk of malignancy, morbidity and mortality associated, she is already quit smoking while she is here in the hospital 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, has declined nicotine patches or any intervention for now - Please stop smoking -If you have recurrent chest pain please go to emergency room -I have discharged on aspirin, Plavix, which are strong blood thinners, if you develop bloody or black stools, or develop significant fall with bruising please go to the emergency room -Please do not stop taking aspirin or Plavix unless instructed to by cardiology, as these medications are keeping your stent open -For your high blood pressure take blood pressure medication as prescribed, see your primary care provider in 1 week for blood pressure check -I have discharged on nitroglycerin to be used as needed for chest pain -For your hypothyroidism we have discharged on low-dose levothyroxine 25 mcg once daily, see your primary care provider in 6 weeks for recheck TSH -Please follow with cardiology as scheduled -For your obesity, weight loss, healthy eating, discussed with primary care provider for consideration of GLP-1 analog such as Ozempic which also have cardiovascular benefit -For your prediabetes, A1c 6.0, please discuss with primary care provider about weight loss, healthy eating, weight loss strategies, and as above GLP-1 analog monitor blood sugars as outpatient, monitor A1c -Have primary care provider recheck CBC, and BMP in 1 week Physical Exam Const: COMMON NORMALS: no acute distress and patient oriented x3 Resp: COMMON NORMALS: normal respiratory effort, No retractions, No use of accessory muscles and clear to auscultation bilaterally AUSCULTATION: clear to auscultation bilaterally Cardio: COMMON NORMALS: regular rate, regular rhythm, S1 normal heart sound present and S2 normal heart sound present RATE: regular rate RHYTHM: regular rhythm HEART SOUNDS: S1 normal heart sound present and S2 normal heart sound present GI: COMMON NORMALS: Normal to inspection, nondistended, normoactive bowel sounds present and non-tender Extremity: COMMON NORMALS: no pedal edema Neuro: COMMON NORMALS: patient oriented x3 Psych: COMMON NORMALS: mental status grossly normal Discharge Data Studies Completed and Pending Completed Studies During Hospitalization Category Date Time Status CV. echo wo/w contrast [id number] Stat Ultrasound 05/16/23 15:19 Completed Pending at discharge Category Date Time Status ADJ[employer] IN[employer]CTOR IN ECONOMICS request for service Routine Exams 05/16/23 15:52 Taken Complete Blood Count w/Auto AM LABS Lab 05/19/23 04:00 Ordered Comprehensive Metabolic Panel AM LABS Lab 05/19/23 04:00 Ordered Magnesium AM LABS Lab 05/19/23 04:00 Ordered PTT [Partial Thromboplastin Time] Timed Lab 05/18/23 14:30 Ordered Phosphorus AM LABS Lab 05/19/23 04:00 Ordered Platelet Count Q2D Lab 05/20/23 04:00 Ordered Laboratory Results WBC 9.51 10^3/uL (3.29-11.43) 05/18/23 03:17 RBC 4.59 10^6/uL (3.85-5.65) 05/18/23 03:17 Hgb 13.20 g/dL (11.27-16.99) 05/18/23 03:17 Hct 41.7 % (36-47) 05/18/23 03:17 MCV 90.8 fl (85-98) 05/18/23 03:17 MCH 28.8 pg (27-33) 05/18/23 03:17 MCHC 31.7 g/dL (30-55) 05/18/23 03:17 RDW 16.0 % (12.1-15.1) H 05/18/23 03:17 Plt Count 267 10^3/cmm (157-399) 05/18/23 03:17 MPV 9.9 fL (7.4-10.4) 05/18/23 03:17 Neut % (Auto) 65.4 % 05/18/23 03:17 Lymph % (Auto) 25.2 % 05/18/23 03:17 [place] % (Auto) 7.3 % 05/18/23 03:17 Eos % (Auto) 1.3 % 05/18/23 03:17 Baso % (Auto) 0.5 % 05/18/23 03:17 Neut # (Auto) 6.22 10^3/uL (1.8-7.7) 05/18/23 03:17 Lymph # (Auto) 2.4 10^3/uL (0.8-4.8) 05/18/23 03:17 [place] # (Auto) 0.7 10^3/uL (0.2-0.9) 05/18/23 03:17 Eos # (Auto) 0.1 10^3/uL (0.0-0.8) 05/18/23 03:17 Baso # (Auto) 0.1 10^3/uL (0.0-0.1) 05/18/23 03:17 Nucleated RBC % (auto) 0 % 05/18/23 03:17 Nucleated RBCs # 0.0 /100WBC 05/18/23 03:17 APTT 79.1 SECONDS (23.9-36.7) H 05/18/23 03:17 Sodium 138 mmol/L (136-145) 05/18/23 03:17 Potassium 4.6 mmol/L (3.5-5.1) 05/18/23 03:17 Chloride 103 mmol/L (98-107) 05/18/23 03:17 Carbon Dioxide 30 mmol/L (22-29) H 05/18/23 03:17 Anion Gap 9.6 (5-19) 05/18/23 03:17 BUN 11 mg/dL (6-20) 05/18/23 03:17 Creatinine 0.9 mg/dL (0.5-0.9) 05/18/23 03:17 GFR Calculation 65.8 mL/min (90-130) L 05/18/23 03:17 Glucose 119 mg/dL (65-115) H 05/18/23 03:17 Estimat Average Glucose 126 05/16/23 15:45 Hemoglobin A1c 6.0 % (4.0-6.0) 05/16/23 15:45 Calculated Osmolality 287 mOsm/kg (285-295) 05/18/23 03:17 Calcium 8.7 mg/dL (8.5-10.5) 05/18/23 03:17 Phosphorus 3.2 mg/dL (2.5-4.5) 05/18/23 03:17 Magnesium 2.1 mg/dL (1.7-2.3) 05/18/23 03:17 Total Bilirubin 0.3 mg/dL (0.15-1.2) 05/18/23 03:17 AST 25 U/L (0-32) 05/18/23 03:17 ALT 26 U/L (0-33) 05/18/23 03:17 Alkaline Phosphatase 64 U/L (35-105) 05/18/23 03:17 Troponin T Baseline 734 ng/L (0-10) H* 05/16/23 15:45 Troponin T Hi Sens 6Hr 817.2 ng/L (0-10) H 05/16/23 21:45 Troponin T Hi Sens 6Hr Delta 83.2 ng/L (0-12) H* 05/16/23 21:45 C-Reactive Protein 19.3 mg/L (0.0-4.9) H 05/16/23 15:45 NT-Pro-B Natriuret Pep 724 pg/mL (0-125) H 05/16/23 15:45 Total Protein 7.0 g/dL (6.6-8.7) 05/18/23 03:17 Albumin 3.8 g/dL (3.5-5.2) 05/18/23 03:17 Globulin 3.2 g/dL (1.3-4.6) 05/18/23 03:17 Triglycerides 233 mg/dL (0-150) H 05/16/23 15:45 Cholesterol 220 mg/dL (0-200) H 05/16/23 15:45 LDL Cholesterol, Calc 128 mg/dL (50-129) 05/16/23 15:45 HDL Cholesterol 45 mg/dL (60-100) L 05/16/23 15:45 LDL/HDL Ratio 2.84 RATIO (0.00-3.22) 05/16/23 15:45 Cholesterol/HDL Ratio 4.89 mg/dL (0.0-4.40) H 05/16/23 15:45 Procalcitonin 0.07 ng/mL (0-0.5) 05/16/23 15:45 TSH 38.93 uIU/mL (0.27-4.20) H 05/16/23 15:45 Free T4 0.48 ng/dL (0.82-1.77) L 05/17/23 02:37 Free T3 1.8 PG/ML (2.0-4.4) L 05/17/23 02:37 Urine Color Yellow (Yellow) 05/16/23 13:07 Urine Appearance Clear (CLEAR) 05/16/23 13:07 Urine pH 5 (5-7) 05/16/23 13:07 Ur Specific [place] 1.010 (1.005-1.030) 05/16/23 13:07 Urine Protein Neg (Negative) 05/16/23 13:07 Urine Glucose (UA) Norm (Normal) 05/16/23 13:07 Urine Ketones Negative (Negative) 05/16/23 13:07 Urine Blood Neg (Negative) 05/16/23 13:07 Urine Nitrate Negative (Negative) 05/16/23 13:07 Urine Bilirubin Neg (Negative) 05/16/23 13:07 Urine Urobilinogen Norm mg/dL (Negative) 05/16/23 13:07 Ur Leukocyte Esterase Negative (Negative) 05/16/23 13:07 Vitals Last Vital Signs Temp 97.9 F 05/18/23 04:00 Pulse 83 05/18/23 08:00 Resp 14 05/18/23 08:00 BP 136/93 05/18/23 08:00 Pulse Ox 97 05/18/23 07:59 O2 Del Method Room Air 05/18/23 07:59 Discharge Plan Discharge Condition: Stable Prescriptions: New aspirin 81 mg Tablet,Delayed Release (Dr/Ec) 81 mg PO DAILY 30 Days Qty: 30 0RF atorvastatin 40 mg Tablet 40 mg PO BEDTIME 30 Days Qty: 30 0RF carvedilol 6.25 mg Tablet 6.25 mg PO BID 30 Days Qty: 60 0RF clopidogrel 75 mg Tablet 75 mg PO DAILY 30 Days Qty: 30 0RF levothyroxine 25 mcg Tablet 25 mcg PO QAM 30 Days Qty: 30 0RF nitroglycerin 0.4 mg Tablet, Sublingual 0.4 mg sublingual Q5M PRN (Reason: Chest Pain) 30 Days Qty: 30 0RF Discharge Orders: Discharge Order (Routine); Ordered 05/18/23 Ordered By: Nathaniel Koroma Referrals: Kat Crow FNP [Nurse Practitioner] - 05/30/23 10:30 am Discharge Diet: Cardiac Discharge Activity: Resume usual activity Patient Instructions: How to Stop Smoking (DC), Cigarette Smoking and Your Health (GEN), Healthy Living for Adolescents (GEN), DASH Eating Plan (DC), Prediabetes (GEN), Weight Management for Adolescents (DC), Coronary Artery Disease in Women (DC), Opioid Safety, Quitting Smoking Activity Restrictions/Additional Instructions: - Please stop smoking -If you have recurrent chest pain please go to emergency room -I have discharged on aspirin, Plavix, which are strong blood thinners, if you develop bloody or black stools, or develop significant fall with bruising please go to the emergency room -Please do not stop taking aspirin or Plavix unless instructed to by cardiology, as these medications are keeping your stent open -For your high blood pressure take blood pressure medication as prescribed, see your primary care provider in 1 week for blood pressure check -I have discharged on nitroglycerin to be used as needed for chest pain -For your hypothyroidism we have discharged on low-dose levothyroxine 25 mcg once daily, see your primary care provider in 6 weeks for recheck TSH -Please follow with cardiology as scheduled -For your obesity, weight loss, healthy eating, discussed with primary care provider for consideration of GLP-1 analog such as Ozempic which also have cardiovascular benefit -For your prediabetes, A1c 6.0, please discuss with primary care provider about weight loss, healthy eating, weight loss strategies, and as above GLP-1 analog monitor blood sugars as outpatient, monitor A1c Discharge Attestations Time Spent in Discharge Care*: greater than 30 min Time Spent in Smoking Cessation: more than 10 minutes Quality Metrics Clinical Quality Measures [ Acute Myocardial Infaction { Clinical Trial Participant: No; Contraindication to aspirin: None; Aspirin prescribed; Contraindication to statin: None; Statin prescribed; Contraindication to PCI: None; PCI performed;}] Coding Level of Care Code 47715 Total time (in minutes) for Discharge: 45 Diagnoses Non-STEMI (non-ST elevated myocardial infarction) I21.4 Chest pain R07.9
== END 2023-05-18 15:17 | disposition home or self-care (01) ==
PROVIDERS: Internal Medicine; Admitting Provider Family Medicine; PCP Family Medicine; Visit Provider Family Medicine
DX: I21.4 Non-ST elevation (NSTEMI) myocardial infarction (principal); R07.9 Chest pain, unspecified; F17.210 Nicotine dependence, cigarettes, uncomplicated; E66.9 Obesity, unspecified; Z68.43 Body mass index [BMI] 50.0-59.9, adult; I10 Essential (primary) hypertension; I34.0 Nonrheumatic mitral (valve) insufficiency; I07.1 Rheumatic tricuspid insufficiency
CPT/HCPCS: 36415; 80053; 80061; 81003; 83036; 83735; 83880; 84100; 84145; 84439; 84443; 84481; 84484; 85025; 85049; 85347; 85730; 86140; 92921; 92978; 93005; 93454; 93571; 96367; 96374; 96376; 99152; 99153; C1725; C1753; C1769; C1874; C1887; C1894; C8929; C9113; C9600; G0378; G0379; J0360; J1644; J2250; J2405; J3010; J3490; J7030; Q9956; Q9967

== ENCOUNTER → 2023-05-30 10:45 | Outpatient (BNVA) | payer BC, SELFPAY | PROVIDERS: PCP Family Medicine; Visit Provider Nurse Practitioner Family | DX: I25.10 Atherosclerotic heart disease of native coronary artery without angina pectoris (principal) | CPT/HCPCS: 36415; 80048 ==

== ENCOUNTER 2023-07-08 08:59 | Outpatient (CLI) | payer BC, SELFPAY ==
--- NOTE | 2023-07-08 09:00 | MM_ITS ---
WS: [id number] BILATERAL SCREENING DIGITAL TOMOSYNTHESIS MAMMOGRAM WITH CAD HISTORY: SCREENING COMPARISON: None available. Bilateral CC and MLO views with tomosynthesis and synthetic mammography submitted. Computer aided det ection analyzed. Breast composition: There are scattered areas of fibroglandular density. No suspicious masses, microc alcifications or architectural distortion. Dense fibroglandular tissue in the anterior portion of eac h breast. IMPRESSION: MM/[place] [id number] BI-RADS: 2-Benign FOLLOW UP: 1 Year Follow-up
== END 2023-07-08 09:00 | disposition home or self-care (01) ==
LOC: MOBLMAM 09:16
PROVIDERS: PCP Family Medicine; Visit Provider Family Medicine
DX: Z12.31 Encounter for screening mammogram for malignant neoplasm of breast (principal)
CPT/HCPCS: 77063; 77067

== ENCOUNTER 2024-12-27 09:20 | Outpatient (CLI) | payer OTHER, SELFPAY ==
[2024-12-27 10:04] LABS: Chol HDL Ratio 3.23 mg/dL (0.0-4.40); Cholesterol 155 mg/dL (0-200); HDL Cholesterol 48 mg/dL (60-100); LDL Cholesterol Calculated 72 mg/dL (50-129); Triglycerides 174 mg/dL (0-150)
== END 2024-12-27 09:21 | disposition home or self-care (01) ==
PROVIDERS: PCP Family Medicine; Visit Provider Internal Medicine
DX: E78.5 Hyperlipidemia, unspecified (principal); R53.83 Other fatigue
CPT/HCPCS: 36415; 80061